=== PATIENT | male | born 1940 | race Caucasian/White ===

== ENCOUNTER 2016-12-08 21:22 | Emergency (ER) | payer OTHER ==
[2016-12-08 22:50] LABS: URINE BILIRUBIN 1+ (NEGATIVE); URINE BLOOD 2+ (NEGATIVE); URINE GLUCOSE (UA) NORMAL (NORMAL); URINE KETONE TRACE (NEGATIVE); URINE LEUKOCYTE ESTERASE 1+ (NEGATIVE); URINE NITRATE NEGATIVE (NEGATIVE); URINE PROTEIN 1+ (NEGATIVE)
[2016-12-08 23:16] LABS: URINE URIC ACID CRYSTALS 0-2 /[HPF] (NONE SEEN)
[2016-12-08 23:17] LABS: URINE MUCUS 3+
[2016-12-08 23:32] LABS: BASO % 0.1 % (0.2-1.2); EOS # 0.4 10_X3_uL (0.0-0.5); EOS % 4.9 % (0.8-7.0); GRAN # 4.5 10_X3_uL (1.8-5.4); GRAN % 55.6 % (34.0-67.9); HEMATOCRIT 41.3 % (40-51); HEMOGLOBIN 13.4 g/dL (13.7-17.5); LYMPH # 2.1 10_X3_uL (1.3-3.6); LYMPH % 25.5 % (21.8-53.1); MEAN CORPUSCULAR HEMOGLOBIN 28.6 pg (27.0-33.0); MEAN CORPUSCULAR HGB CONC 32.4 g/dL (32.0-36.0); MEAN CORPUSCULAR VOLUME 88.1 fL (79-92); MEAN PLATELET VOLUME 10.2 fl (7.5-11.5); MONO # 1.1 10_X3_uL (0.3-0.8); MONO % 13.9 % (5.3-12.2); PLATELET COUNT 178 x10_3/uL (163-337); RED BLOOD COUNT 4.69 x10_6/uL (4.6-6.1); RED CELL DISTRIBUTION WIDTH 14.5 % (11.6-14.4); WHITE BLOOD COUNT 8.1 x10_3/uL (4.2-9.1)
[2016-12-08 23:43] LABS: INR 2.8 (1.0-1.1); PARTIAL THROMBOPLASTIN TIME 30.2 SECONDS (21.8-28.4); PROTHROMBIN TIME (PATIENT) 29.1 SECONDS (9.6-10.8)
[2016-12-08 23:48] LABS: ALBUMIN 4.1 gm/dL (3.4-5.0); BILIRUBIN,TOTAL 0.71 mg/dL (0.0-1.0); CALCIUM 9.1 mg/dL (8.7-10.7); CREATININE 1.3 mg/dL (0.6-1.3); POTASSIUM 3.9 mmol/L (3.5-5.1); TOTAL PROTEIN 7.1 gm/dL (6.4-8.2)
[2016-12-09 00:54] LABS: AMYLASE 42 U/L (15.62-74.58); LIPASE 41 U/L (6.75-60.75)
== END 2016-12-09 01:43 | disposition home or self-care (01) ==
LOC: ER 21:22
PROVIDERS: Emergency Medicine
DX: N39.0 Urinary tract infection, site not specified (principal); M54.5 Low back pain; I10 Essential (primary) hypertension; R10.9 Unspecified abdominal pain; Z87.442 Personal history of urinary calculi; Z86.718 Personal history of other venous thrombosis and embolism; Z79.899 Other long term (current) drug therapy; Z79.01 Long term (current) use of anticoagulants; Z88.0 Allergy status to penicillin; Z88.5 Allergy status to narcotic agent; Z88.8 Allergy status to other drugs, medicaments and biological substances
CPT/HCPCS: 36415; 71010; 74150; 80053; 81001; 82150; 82550; 82553; 83690; 85025; 85610; 85730; 93005; 96374; 96376; 99070; 99284-25